=== PATIENT | male | born 1945 | race Two or more races ===

== ENCOUNTER 2020-12-28 19:37 | Emergency (ER) | payer OTHER ==
[~2020-12-28] VITALS: Ht 180.3 cm; Wt 78.1 kg
[2020-12-28 19:39] VITALS: BP 145/45
[2020-12-28] MEDS ORDERED: cefTRIAXone SOD 1,000 MG VL IM ONE (23:15)
== END 2020-12-29 00:39 | disposition home or self-care (01) ==
LOC: ER 19:42
DX: K02.9 Dental caries, unspecified (principal); K04.7 Periapical abscess without sinus
CPT/HCPCS: 96372; 99283; J0696